=== PATIENT | male | born 1985 | race Caucasian/White ===

== ENCOUNTER 2019-04-22 18:57 | Emergency (ER) | payer MEDICAID ==
[~2019-04-22] VITALS: Ht 172.7 cm; Wt 80.3 kg
[2019-04-22 18:59] VITALS: Ht 172.7 cm; Wt 80.3 kg
[2019-04-22 20:35] VITALS: BP 154/91
== END 2019-04-22 20:35 | disposition left against medical advice (07) ==
LOC: ED 18:57
DX: M54.5 Low back pain (principal)
CPT/HCPCS: J1885